=== PATIENT | female | born 1945 ===

== ENCOUNTER → 2019-04-18 | Outpatient (CLI) | payer OTHER, MEDICARE, MEDICAID ==
[2019-04-18 20:58] LABS: BASOPHILS % (AUTO) 0 % (0-10); EOSINOPHILS # (AUTO) 0.1 10^3/uL (0.0-0.3); EOSINOPHILS % (AUTO) 0 % (0-10); HEMATOCRIT 43 % (35-52); HEMOGLOBIN 13.5 G/DL (11.5-16.0); LYMPHOCYTES # (AUTO) 0.7 X 10^3 (1.0-4.0); LYMPHOCYTES % (AUTO) 4 % (12-44); MEAN CORPUSCULAR HEMOGLOBIN 29 PG (25-34); MEAN CORPUSCULAR HGB CONC 32 G/DL (32-36); MEAN CORPUSCULAR VOLUME 93 FL (80-99); MEAN PLATELET VOLUME 10.4 FL (7.4-10.4); MONOCYTES # (AUTO) 0.9 X 10^3 (0.0-1.0); MONOCYTES % (AUTO) 6 % (0-12); NEUTROPHILS # (AUTO) 14.8 X 10^3 (1.8-7.8); NEUTROPHILS % (AUTO) 90 % (42-75); PLATELET COUNT 329 10^3/uL (130-400); RED CELL DISTRIBUTION WIDTH 14.4 % (10.0-14.5); WHITE BLOOD COUNT 16.6 10^3/uL (4.3-11.0)
[2019-04-18 21:06] LABS: LYMPHOCYTES % (MANUAL) 4 %; MONOCYTES % (MANUAL) 5 %; NEUTROPHILS % (MANUAL) 91 %; RBC MORPH NORMAL; TOXIC GRANULATION/VACUOLAZATIO 1+
== END ==
LOC: LABNPT 20:40
DX: Z01.89 Encounter for other specified special examinations (principal)
CPT/HCPCS: 85007; 85027